=== PATIENT | female | born 1940 | race Caucasian/White ===

== ENCOUNTER 2023-05-08 06:30 | Day surgery (SDC) | payer MEDICARE, OTHER, SELFPAY ==
--- NOTE | 2023-04-03 10:04 | CM ---
Patient is scheduled for an elective R THR on 05/08/23- she is a same day patient. Spoke with patient prior to surgery. Introduced role of Orthopedic Navigator. Patient reports that she lives alone in a two story home. There are three steps to enter
and a flight of steps to the second floor. She currently functions independently. She has a cane, raised toilet seat, lab systems analyst, long handled shoe horn, sock aid and rolling walker. She has never had VN services. PCP is Dr. Martinez.
Discussed orthopedic program and post surgical plans. Reviewed that she will have [facility]N services initially (medicare.gov website and ratings reviewed) and will then start outpatient PT. Patient selects [facility] (face sheet faxed to [facility] to facilitate
confirmation of benefits) for his home care needs and will go to [facility] for outpatient PT.
Patient is in agreement with plan and states that her son and [id number] will be staying with her for two weeks.
Patient has completed online education.
Plan: Orthopedic Navigator will remain available to assist with the care of patient and will reassess discharge needs after surgery.
[2023-04-19 12:24] VITALS: BMI 28.0
[2023-04-19 13:44] LABS: Hematocrit 40.8 % (37.0-47.0); Hemoglobin 13.7 g/dL (12.0-16.0); Mean Corp Hgb Conc. 33.6 g/dL (33.0-37.0); Mean Corpuscular Hgb 31.4 pg (27.0-31.0); Mean Corpuscular Volume 93.4 fL (81.0-99.0); Mean Platelet Volume 10.6 fL (7.4-10.4); Platelet Count 268 10^3/uL (130-400); Red Blood Cell Count 4.37 10^6/uL (4.20-5.40); Red Cell Dist. Width 12.9 % (11.5-14.5)
[2023-04-19 14:23] LABS: ALT (SGPT) 24 U/L (0-35); AST (SGOT) 32 U/L (14-36); Albumin 4.3 g/dl (3.5-5.0); Alkaline Phosphatase 72 U/L (38-126); Blood Urea Nitrogen 22 mg/dl (7-17); Calcium 9.7 mg/dl (8.4-10.2); Carbon Dioxide 27 mmol/L (22-30); Chloride 98 mmol/L (98-107); Estimated Creatinine Clearance 60 ml/min; Glucose 51 mg/dl (70-99); Potassium 4.1 mmol/L (3.5-5.1); Sodium 134 mmol/L (135-145); Total Bilirubin 0.8 mg/dl (0.2-1.3); Total Protein 7.1 g/dl (6.3-8.2); eGFR > 60.00
[2023-04-19 14:24] LABS: Glycohemoglobin (HgbA1c) 5.8 % (4.0-5.6)
[2023-04-19 16:23] VITALS: BMI 28.0
[2023-04-24 10:50] LABS: Glucose 100 mg/dl (70-99)
[2023-05-02 09:45] VITALS: BMI 28.0
[2023-05-08] VITALS (14 sets, daily range): BP systolic 103–186; BP diastolic 47–86
[2023-05-08] MEDS: TYLENOL 650 MG PO (07:26)
[2023-05-08] MEDS: CELEBREX 200 MG PO (07:27)
[2023-05-08 07:31] LABS: Glucose - Point of Care 95 mg/dl (70-99)
[2023-05-08] MEDS: NORMOSOL-R 1000 IV (07:31)
--- NOTE | 2023-05-08 12:10 | CM ---
Patient had planned R THR today. Met with patient and her son at bedside to review discharge plans. Patient will be returning home today with services through [facility]. On , 05/10, patient will start outpatient PT at [facility]. Reviewed MD
follow up in two weeks and patient has already scheduled her appointment.
Patient has her rolling walker here with her.
PT and [facility] were kept updated as to progress and discharge plans.
[2023-05-08] MEDS: ANCEF 5 IV (12:52)
== END 2023-05-08 13:35 | disposition home health service (06) ==
LOC: SDS 06:30
PROVIDERS: ATTENDING PHYSICIAN Specialist; FAMILY PHYSICIAN Internal Medicine; OTHER PHYSICIAN Internal Medicine; OTHER PHYSICIAN Internal Medicine Rheumatology; OTHER PHYSICIAN Physician Assistant
DX: M16.11 Unilateral primary osteoarthritis, right hip (principal); M35.3 Polymyalgia rheumatica; I49.3 Ventricular premature depolarization; I34.0 Nonrheumatic mitral (valve) insufficiency; T39.395A Adverse effect of other nonsteroidal anti-inflammatory drugs [NSAID], initial encounter; Y93.89 Activity, other specified
CPT/HCPCS: 27130; 36415; 73502; 80053; 82947; 82962; 83036; 85027; 87070; 97162; C1713; C1776